=== PATIENT | male | born 1975 | race Caucasian/White ===

== ENCOUNTER 2023-07-29 16:07 | Emergency (ER) | payer OTHER ==
[~2023-07-29] VITALS: Ht 180.3 cm; Wt 79.1 kg
[~2023-07-29 16:07] MED LIST: NOCURR
[2023-07-29] MEDS: SODIUM CHLORIDE 0.9% 1,000 ML IV ONE (16:44)
[2023-07-29] MEDS: MORPHINE SULFATE 4 MG/ML SYRINGE IVP ONE (16:44)
[2023-07-29] MEDS: ONDANSETRON HCL 4 MG/2 ML VIAL IVP ONE (16:44)
[2023-07-29] MEDS: CeFAZolin 1 GM/DEXTROSE 50 ML IV ONE (16:45)
[2023-07-29] MEDS: PERTUSS(ACELL),DIPH,TET/PF 0.5 ML SYRINGE [ADULT] IM. ONE (16:46)
[2023-07-29 17:07] LABS: BASOPHILS % (AUTO) 0.6 % (0.0-2.0); EOSINOPHILS % (AUTO) 1.2 % (1.0-6.0); HEMATOCRIT 41.8 % (41-53); HEMOGLOBIN 14.3 g/dL (13.5-17.5); LYMPHOCYTES # (AUTO) 2.5 K/uL (1.0-4.8); LYMPHOCYTES % (AUTO) 35.7 % (22.0-44.0); MEAN CORPUSCULAR HEMOGLOBIN 33.5 pg (26.0-34.0); MEAN CORPUSCULAR HGB CONC 34.2 G/dL (31.0-37.0); MEAN CORPUSCULAR VOLUME 98 fL (80-100); MONOCYTES # (AUTO) 0.6 K/uL (0.1-1.0); MONOCYTES % (AUTO) 7.9 % (2.0-9.0); NEUTROPHILS # (AUTO) 3.9 K/uL (1.8-7.7); NEUTROPHILS % (AUTO) 54.6 % (40.0-70.0); PLATELET COUNT (AUTO) 313 K/uL (150-450); RED BLOOD CELL COUNT(AUTO) 4.27 MIL/uL (4.50-5.90); WHITE BLOOD COUNT (AUTO) 7.1 K/uL (4.5-11.0)
[2023-07-29 17:26] LABS: ANION GAP 14 mmol/L (8-16); CALCIUM, TOTAL 8.6 mg/dL (8.8-10.5); CARBON DIOXIDE 21 mmol/L (22-29); CHLORIDE 104 mmol/L (98-107); CREATININE 1.09 mg/dL (0.60-1.30); GLOMERULAR FILTR. RATE CALC > 60 mL/min (>60); GLUCOSE,RANDOM 107 mg/dL (70-110); POTASSIUM 3.6 mmol/L (3.5-5.1); SODIUM SERUM 139 mmol/L (136-145); UREA NITROGEN, BLOOD 11 mg/dL (7-18)
[2023-07-29 17:32] LABS: ALANINE AMINOTRANSFERASE 45 U/L (12-78); ALBUMIN 3.8 g/dL (3.4-5.0); ALKALINE PHOSPHATASE 84 U/L (46-116); ASPARTATE AMINOTRANSFERASE 36 U/L (15-37); BILIRUBIN,TOTAL 0.4 mg/dL (0.1-1.0); TOTAL PROTEIN, SERUM 7.5 g/dL (6.4-8.2)
[2023-07-29 17:33] LABS: PROTHROMBIN TIME 10.9 SEC (9.4-11.6)
[2023-07-29 18:09] VITALS: TEMP 98.5
[2023-07-29 18:32] VITALS: BP 141/90; PULSE 80; RESP 18
== END 2023-07-29 19:30 | disposition short-term general hospital (02) ==
LOC: EMS 16:13
DX: S02.69XA Fracture of mandible of other specified site, initial encounter for closed fracture (principal); F12.90 Cannabis use, unspecified, uncomplicated; V00.841A Fall from standing electric scooter, initial encounter; Y93.89 Activity, other specified; Y92.89 Other specified places as the place of occurrence of the external cause; Y99.8 Other external cause status
CPT/HCPCS: 99291; 70450; 96365; 96375; 80053; 85025; 85610; 85730; 86850; 86900; 86901; 36415; 71045; 73130; 70486; 72125; 90715; 90471; J0690; J2270; J2405; J7030